=== PATIENT | female | born 1975 | race Caucasian/White ===

== ENCOUNTER 2017-01-18 | Day surgery (SDC) | payer OTHER ==
[~2017-01-18] VITALS: Ht 172.7 cm; Wt 84.8 kg
[2017-01-18] MEDS ORDERED: ALEV220C2 PO (00:14)
[2017-01-18] MEDS ORDERED: NS 1,000 ML IV ONE (01:45)
[2017-01-18] MEDS ORDERED: ONDANSETRON 4MG/2ML VIAL (J2405) IV ONE ×2 (01:45→03:15)
[2017-01-18 02:12] LABS: BASO % 0.2 % (0.0-1.0); EOS % 0.1 % (0.0-3.0); IMMATURE GRANULOCYTE % 0.5 % (0-0); LYMPH # 0.8 10^3/uL (1.5-4.5); LYMPH % 4.6 % (24.0-44.0); MEAN CORPUSCULAR HEMOGLOBIN 30.5 pg (27.0-33.0); MEAN CORPUSCULAR HGB CONC 33.7 g/dl (32.0-36.5); MEAN CORPUSCULAR VOLUME 90.4 fl (80.0-96.0); MONO % 5.9 % (0.0-5.0); NEUTROPHILS # 15.1 10^3/uL (1.8-7.7); NEUTROPHILS % 88.7 % (36.0-66.0); PLATELET COUNT, AUTOMATED 355 10^3/uL (150-450); RED CELL DISTRIBUTION WIDTH 13.2 % (11.5-14.5); WHITE BLOOD COUNT 17.1 10^3/uL (4.0-10.0)
[2017-01-18 02:42] LABS: BLOOD UREA NITROGEN 6 MG/DL (7-18); CREATININE FOR GFR 0.57 MG/DL (0.55-1.02); GLUCOSE, FASTING 111 MG/DL (70-105)
[2017-01-18 02:43] LABS: ALBUMIN 3.4 GM/DL (3.2-5.2); ALKALINE PHOSPHATASE 156 U/L (45-117); ALT/SGPT 57 U/L (12-78); ANION GAP 9 MEQ/L (8-16); AST/SGOT 49 U/L (15-37); BILIRUBIN,TOTAL 1.2 MG/DL (0.2-1.0); CALCIUM LEVEL 8.9 MG/DL (8.5-10.1); CARBON DIOXIDE LEVEL 29 MEQ/L (21-32); CHLORIDE LEVEL 102 MEQ/L (98-107); GLOMERULAR FILTRATION RATE > 60.0 (>58); POTASSIUM SERUM 3.4 MEQ/L (3.5-5.1); SODIUM LEVEL 140 MEQ/L (136-145); TOTAL PROTEIN 6.8 GM/DL (6.4-8.2)
[2017-01-18] MEDS ORDERED: MORPHINE 4 MG/ML 1ML SYRINGE IV PRN ×2 (03:15→19:15)
[2017-01-18] MEDS ORDERED: GASTROGRAFIN SOLUTION 30ML (Q9963) PO ONE ×2 (03:25→03:55)
--- NOTE | 2017-01-18 04:00 | REPUSA ---
CLINICAL HISTORY: Pelvic pain. Ovarian mass. TECHNIQUE: Realtime sonographic images were obtained in multiple projections via TV approach. COMMENTS: The uterus measures 9.4x5.4x5.9 cm. Endometrium is normal in thickness measuring 13.6 mm. Complex solid mass of the right ovary/right adnexa measuring 10.6x7.2x9.8 cm. Number item vein flow. Left ovary is enlarged measuring 8.8x3.9x7.5 cm with a complex cyst measuring 4.2 cm. Normal left ova davis flow. Unremarkable bladder. IMPRESSION: 10.6 cm large solid mass of the right adnexa. This may represent pedunculated subserosal uterine fibr oid versus right ovarian complex solid mass. Left ovarian complex cyst. Thank you for your kind referral of this patient.
[2017-01-18] MEDS ORDERED: ISOVUE-370 76% 100ML VIAL (Q9967) As Ordered ONE (04:10)
[2017-01-18] MEDS ORDERED: METAL LOCK LOOP XX ONE ×2 (05:55→09:09)
--- NOTE | 2017-01-18 06:30 | REPUSA ---
CLINICAL HISTORY: Abdominal pain. TECHNIQUE: Multiple axial, sagittal and coronal CT images were obtained through the abdomen and pelvi s after administration of oral and intravenous contrast material. COMMENTS: 10.2 x7.8 cm heterogeneously enhancing solid mass of the right adnexa. Multiple left ovarian cysts with the largest measuring 3.1 cm. Right hydrosalpinx. Left hydrosalpinx. Fluid-filled colon. The liver is of uniform attenuation without mass or defect. There is no intra or extrahepatic biliary ductal dilatation. The spleen is normal. The gallbladder is within normal limits. The pancreas is of normal contour and attenuation characteristics. There is no evidence of adrenal mass. Both kidneys demonstrate prompt and equal nephrograms. The kidneys are normal in size, shape and conf iguration. There is no evidence of renal or ureteral mass. No renal or ureteral calculi are identifie d. There is no hydroureter or hydronephrosis. No evidence for appendicitis. There is no bowel wall thickening. No evidence for small or large adelaida l obstruction. There is no evidence of intrinsic or extrinsic bladder mass. Images of the lung bases show no evidence of pleural or parenchymal mass. There are no pleural effusi ons. The bony structures are free of lytic or blastic lesions. Multilevel degenerative changes are seen in volving the thoracolumbar spine. Scattered calcifications are seen involving the aorta and major bran ches compatible with atherosclerosis. IMPRESSION: Right adnexal solid enhancing mass, probably pedunculated subserosal fibroid. Right hydrosalpinx. Left hydrosalpinx. Multiple left ovarian cysts. Findings can be better/further evaluated by means of MRI with gadolinium if clinically warranted. Fluid-filled colon. Probably mild ileus. Thank you for your kind referral of this patient.
[2017-01-18] MEDS ORDERED: MORPHINE 4 MG/ML 1ML SYRINGE IV ONE (07:45)
[2017-01-18 08:18] LABS: BASO % 0.2 % (0.0-1.0); EOS % 0.1 % (0.0-3.0); IMMATURE GRANULOCYTE % 0.5 % (0-0); LYMPH # 1.5 10^3/uL (1.5-4.5); LYMPH % 7.9 % (24.0-44.0); MEAN CORPUSCULAR HEMOGLOBIN 30.9 pg (27.0-33.0); MEAN CORPUSCULAR HGB CONC 33.9 g/dl (32.0-36.5); MEAN CORPUSCULAR VOLUME 91.3 fl (80.0-96.0); MONO # 1.2 10^3/uL (0.0-0.8); MONO % 6.5 % (0.0-5.0); NEUTROPHILS % 84.8 % (36.0-66.0); PLATELET COUNT, AUTOMATED 355 10^3/uL (150-450); RED CELL DISTRIBUTION WIDTH 13.2 % (11.5-14.5); WHITE BLOOD COUNT 18.9 10^3/uL (4.0-10.0)
[2017-01-18] MEDS ORDERED: EXCETAB80 PO (09:17)
--- NOTE | 2017-01-18 10:04 | CR.PDOC ---
[facility] Consultation Consultation DATE OF CONSULTATION: Jan 18, 2017 at 00:00 REFERRING PROVIDER: Dr. Briggs ATTENDING PHYSICIAN: Dr. Vazquez REASON FOR CONSULTATION/CHIEF COMPLAINT: Abdominal pain HISTORY OF PRESENT ILLNESS: Patient presents to the emergency room because of abdominal pain that started on Sunday. She admits the pain has been worsening since Sunday. The pain is throughout her general abdomen, however it is worse in her lower abdomen. The pain was 9 out of 10 on presentation, the pain is exacerbated by movement. Patient admits to fever yesterday, however she did not measure her temperature she simply took aspirin for the fever. She admits to decreased appetite, stated that she has only been able to tolerate a few crackers since the pain began. She admits to being constipated, her last bowel movement was yesterday and he was a few pellets. There was no pain with defecation, and defecation did not improve her pain. CT of the abdomen revealed right adnexal solid enhancing mass, probably pedunculated serosal fibroid. Along with a right hydrosalpinx and left hydrosalpinx and also multiple left ovarian cysts. Surgery was consulted for the possibility of an acute abdomen after peritoneal signs were noted on physical exam. Patient denies any chills, hematuria, difficulty straining, melena, bright red blood per stool. ALLERGIES: Please see below. HOME MEDICATIONS: Please see below. PAST MEDICAL HISTORY: 1. None PAST SURGICAL HISTORY: 1. Left knee surgery FAMILY HISTORY: SOCIAL HISTORY: Lives with the and son. Smokes .5 pack a day. And drinks 2-3 times a week about 3-4 beers a sitting. Denies drugs REVIEW OF SYSTEMS: CONSTITUTIONAL: Admits to fever. CARDIOVASCULAR: Denies any chest pain, palpitations, rapid heart rate. RESPIRATORY: Admits that taking full deep breath causes her abdominal pain. GENITOURINARY: No issues to report. MUSCULOSKELETAL: Denies muscles, joint, skeletal muscle pain GASTROINTESTINAL: Admits to constipation, denies blood in stool. HEMATOLOGIC/LYMPHATIC: Admits to periods that requires both pads and tampons PHYSICAL EXAMINATION: VITAL SIGNS: Please see below. GENERAL APPEARANCE: Well mannered, well-developed adult female, knees bent over RESPIRATORY: Lungs are clear to auscultate, bilateral anterior and posterior CARDIOVASCULAR: S1 and S2 present, no rubs, no murmurs, no gallops. ABDOMEN: To palpate in all 4 quadrants, pain is worse in the lower abdomen. EXTREMITIES: Then, no deformities noted. LABORATORY DATA: Please see below. ASSESSMENT/PLAN: 1. Abdominal pain: Etiology unsure,most likely caused the right adnexal solid enhancing mass, identified as probably pedunculated subserosal fibroid. The pain could also be related to her right hydrosalpinx all left hydrosalpinx. Also perhaps abdominal pain could be stemming from her multiple left ovarian cysts..EGG FACTORY WORKER has been consulted. I recommend following the guidelines and management recommended by EGG FACTORY WORKER. Patient is not exhibiting any physical signs of an acute abdomen, does not require surgical intervention at this point. 2. Local ileus in pelvis: Ileus adjacent to EGG FACTORY WORKER pathology. Ileus is most likely caused by pelvic inflammation caused by EGG FACTORY WORKER issues. I believe that once EGG FACTORY WORKER issue has been resolved, local ileus will resolve as well. Vital Signs/I&O Vital Signs Date Time Temp Pulse Resp B/P (MAP) Pulse Ox O2 Delivery O2 Flow Rate FiO2 01/18/17 08:14 98.7 103 18 129/81 99 Room Air Laboratory Data Labs 24H Laboratory Tests 2 01/18/17 01:43: Immature Granulocyte % (Auto) 0.5H, White Blood Count 17.1H, Red Blood Count 4.17, Hemoglobin 12.7, Hematocrit 37.7, Mean Corpuscular Volume 90.4, Mean Corpuscular Hemoglobin 30.5, Mean Corpuscular Hemoglobin Concent 33.7, Red Cell Distribution Width 13.2, Platelet Count 355, Neutrophils (%) (Auto) 88.7H, Lymphocytes (%) (Auto) 4.6L, Monocytes (%) (Auto) 5.9H, Eosinophils (%) (Auto) 0.1, Basophils (%) (Auto) 0.2, Neutrophils # (Auto) 15.1H, Lymphocytes # (Auto) 0.8L, Monocytes # (Auto) 1.0H, Eosinophils # (Auto) 0.0, Basophils # (Auto) 0.0 , Immature Granulocyte # (Auto) 0.1H, Nucleated Red Blood Cells % (auto) 0.0, Anion Gap 9, Glomerular Filtration Rate > 60.0, Blood Urea Nitrogen 6L, Creatinine 0.57, Sodium Level 140, Potassium Level 3.4L, Chloride Level 102, Carbon Dioxide Level 29, Calcium Level 8.9, Aspartate Amino Transf (AST/SGOT) 49H, Alanine Aminotransferase (ALT/SGPT) 57, Alkaline Phosphatase 156H, Total Bilirubin 1.2H, Total Protein 6.8, Albumin 3.4, Albumin/Globulin Ratio 1.00, Lipase 85 01/18/17 08:02: Immature Granulocyte % (Auto) 0.5H, White Blood Count 18.9H, Red Blood Count 4.04, Hemoglobin 12.5, Hematocrit 36.9, Mean Corpuscular Volume 91.3, Mean Corpuscular Hemoglobin 30.9, Mean Corpuscular Hemoglobin Concent 33.9, Red Cell Distribution Width 13.2, Platelet Count 355, Neutrophils (%) (Auto) 84.8H, Lymphocytes (%) (Auto) 7.9L, Monocytes (%) (Auto) 6.5H, Eosinophils (%) (Auto) 0.1, Basophils (%) (Auto) 0.2, Neutrophils # (Auto) 16.0H, Lymphocytes # (Auto) 1.5, Monocytes # (Auto) 1.2H, Eosinophils # (Auto) 0.0, Basophils # (Auto) 0.0, Immature Granulocyte # (Auto) 0.1H, Nucleated Red Blood Cells % (auto) 0.0 CBC/BMP Laboratory Tests 01/18/17 01:43 Red Blood Count 4.17, Mean Corpuscular Volume 90.4, Mean Corpuscular Hemoglobin 30.5, Mean Corpuscular Hemoglobin Concent 33.7, Red Cell Distribution Width 13.2 , Neutrophils (%) (Auto) 88.7 H, Lymphocytes (%) (Auto) 4.6 L, Monocytes (%) ( Auto) 5.9 H, Eosinophils (%) (Auto) 0.1, Basophils (%) (Auto) 0.2, Neutrophils # (Auto) 15.1 H, Lymphocytes # (Auto) 0.8 L, Monocytes # (Auto) 1.0 H, Eosinophils # (Auto) 0.0, Basophils # (Auto) 0.0, Calcium Level 8.9, Aspartate Amino Transf (AST/SGOT) 49 H, Alanine Aminotransferase (ALT/SGPT) 57, Alkaline Phosphatase 156 H, Total Bilirubin 1.2 H, Total Protein 6.8, Albumin 3.4 01/18/17 08:02 Red Blood Count 4.04, Mean Corpuscular Volume 91.3, Mean Corpuscular Hemoglobin 30.9, Mean Corpuscular Hemoglobin Concent 33.9, Red Cell Distribution Width 13.2 , Neutrophils (%) (Auto) 84.8 H, Lymphocytes (%) (Auto) 7.9 L, Monocytes (%) ( Auto) 6.5 H, Eosinophils (%) (Auto) 0.1, Basophils (%) (Auto) 0.2, Neutrophils # (Auto) 16.0 H, Lymphocytes # (Auto) 1.5, Monocytes # (Auto) 1.2 H, Eosinophils # (Auto) 0.0, Basophils # (Auto) 0.0 Allergies Coded Allergies: No Known Allergies (Unverified , 01/18/17) Home Medications Scheduled PRN (Aleve) 220 Mg Cap, 2 TAB PO once PRN for PAIN, (Reported) Acetaminophen/Aspirin/Caffein (Excedrin Migraine 250-250-65 mg) 1 Tab Tab, 1 TAB PO for MIGRAINE, (Reported) GME ATTESTATION GME ATTESTATION My preceptor for this patient encounter was physically present in the building during the encounter and was fully available. As needed, all aspects of the patient interview, examination, medical decision making process, and medical care plan development were reviewed and approved by the preceptor. Preceptor is aware and concurs with the plan as stated in the body of this note and will attest to such by his/her cosignature. ZANA REAL DO Jan 18, 2017 09:48
[2017-01-18 14:02] LABS: CONTROL LINE HCG INT CTR LINE PRESENT
--- NOTE | 2017-01-18 14:48 | REP ---
Clinical: Epigastric and abdominal pain. Technique: Upright view of the chest with supine and upright views of the abdomen and pelvis. Findings: Frontal upright view of the chest demonstrates no acute cardiopulmonary process or free air below the diaphragm to suspect pneumoperitoneum. Supine and upright views of the abdomen and pelvis demonstrate nonspecific bowel gas pattern without obstruction or perforation. No organomegaly. No abnormal calcifications. Skeletal structures normal for age. Impression: Nonspecific bowel gas pattern. Signed by Kiel Mcmanus MD 01/18/2017 02:40 P
[2017-01-18] MEDS ORDERED: ceFAZolin 2 GM/D5W 50 ML IV BAG (J0690) As Ordered ONE (15:00)
[2017-01-18] MEDS ORDERED: fentaNYL 250 MCG/5 ML INJECTION (J3010) As Ordered ONE (16:20)
[2017-01-18] MEDS ORDERED: ONDANSETRON 4MG/2ML VIAL (J2405) As Ordered ONE (16:20)
[2017-01-18] MEDS ORDERED: KETOROLAC 60 MG/2 ML VIAL (J1885) As Ordered ONE (16:20)
[2017-01-18] MEDS ORDERED: PHENYLephrine HCL 500 MCG/5 ML (100MCG/ML) SYRINGE (J2370) As Ordered ONE (16:20)
[2017-01-18] MEDS ORDERED: PROPOFOL 200 MG/20 ML VIAL As Ordered ONE (16:20)
[2017-01-18] MEDS ORDERED: HYDROmorphone HCL 2 MG/ML 1ML VIAL (J1170) As Ordered ONE (16:20)
[2017-01-18] MEDS ORDERED: ROCURONIUM BROMIDE 50 MG/5 ML VIAL/SYRINGE As Ordered ONE (16:20)
[2017-01-18] MEDS ORDERED: LIDOCAINE 2% INJ 100 MG/5 ML SDV (FOR ANES.) As Ordered ONE (16:20)
[2017-01-18] MEDS ORDERED: SUCCINYLCHOLINE 100 MG/5 ML SYRINGE (J0330) As Ordered ONE (16:20)
[2017-01-18] MEDS ORDERED: MIDAZOLAM INJ 2 MG/2 ML VIAL (J2250) As Ordered ONE (16:20)
[2017-01-18] MEDS ORDERED: dexameTHASONE 4 MG/ML 1ML VIAL (J1100) As Ordered ONE (16:20)
[2017-01-18] MEDS ORDERED: NEOSTIGMINE 10 MG/10 ML VIAL (J2710) As Ordered ONE (16:22)
[2017-01-18] MEDS ORDERED: GLYCOPYRROLATE INJ 0.2 MG/ML 2 ML VIAL As Ordered ONE (16:22)
[2017-01-18] MEDS ORDERED: ONDANSETRON 4MG/2ML VIAL (J2405) IV PRN (18:30)
[2017-01-18] MEDS ORDERED: fentaNYL 100 MCG/2 ML INJECTION (J3010) IV PRN (18:30)
[2017-01-18] MEDS ORDERED: LR 1,000 ML IV SCH (18:30)
[2017-01-18] MEDS ORDERED: MORPHINE 2 MG/ML 1ML SYRINGE IV PRN (18:30)
[2017-01-18] MEDS ORDERED: PROMETHAZINE INJ 25 MG/ML VIAL (J2550) IV PRN (19:15)
[2017-01-18 20:51] VITALS: BP 134/73
[2017-01-18 21:30] VITALS: BP 109/59
[2017-01-18] MEDS: LR 1,000 ML IV SCH (21:32)
[2017-01-18] MEDS: PIPERACILLIN/TAZOBACTAM SOD 3.375 GM in D5W 50 ML IV SCH (21:32)
[2017-01-18] MEDS: KETOROLAC 30 MG/ML VIAL (J1885) IV SCH (21:47)
[2017-01-18 22:30] VITALS: BP 99/57
[2017-01-18 23:59] VITALS: BP 105/51
[2017-01-19] MEDS: PIPERACILLIN/TAZOBACTAM SOD 3.375 GM in D5W 50 ML IV SCH ×5 (02:26→20:18)
[2017-01-19 04:00] VITALS: BP 108/59
[2017-01-19] MEDS: LR 1,000 ML IV SCH (05:03)
[2017-01-19] MEDS: KETOROLAC 30 MG/ML VIAL (J1885) IV SCH ×4 (05:04→22:00)
--- NOTE | 2017-01-19 05:30 | HPE ---
DATE OF ADMISSION: 01/18/2017 REASON FOR ADMISSION: Pelvic mass. HISTORY OF PRESENT ILLNESS: Ms. Estrada is a 41-year-old 1, para 1, who presented to the emergency department with complains of abdominopelvic pain and constipation. She reports that her pain started on Sunday and has progressively worsened the night of presentation. She reports two days of constipation. She has had a bowel movement yesterday, small amounts. She denied any fever, chills, vaginal bleeding or dysuria. PAST MEDICAL HISTORY: None. PAST SURGICAL HISTORY: She has had left knee surgery. MEDICATIONS: None. ALLERGIES: She has no known drug allergies. SOCIAL HISTORY: She reports a half pack a day of smoking. PHYSICAL EXAMINATION: VITAL SIGNS: Stable. She is afebrile. GENERAL APPEARANCE: Is well appearing. No acute distress. LUNGS: Clear to auscultation bilaterally. CARDIOVASCULAR: Heart regular rate and rhythm. ABDOMEN: Appears distended, diffuse tenderness throughout. LABORATORY DATA: She has a white count of 18.9. Her hemoglobin is 12.5, hematocrit 36.9. Platelet count are 355. IMAGING: She had a pelvic ultrasound demonstrating a 10.6 cm mass in her right adnexa concerning for pedunculated subserosal uterine fibroid, as well as a complex left ovarian cyst measuring 4.2 cm. Bilateral hydrosalpinx noted. ASSESSMENT: 1. Ms. Estrada is a 41-year-old 1, para 1 with worsening acute abdominal pain described as 01/16. 2. Pelvic mass concerning for possible degenerative fibroid versus ovarian tumor , possible fibroma. Also in differential tubo-ovarian abscess considering leukocytosis of 18,000. PLAN: I have discussed these findings with the couple. I discussed surgical management with exploratory laparotomy, likely myomectomy, possible salpingo-oophorectomy. She is also being consented for all indicated procedures. CORIN
[2017-01-19 06:03] LABS: MEAN CORPUSCULAR HEMOGLOBIN 31.2 pg (27.0-33.0); MEAN CORPUSCULAR HGB CONC 33.8 g/dl (32.0-36.5); MEAN CORPUSCULAR VOLUME 92.4 fl (80.0-96.0); RED CELL DISTRIBUTION WIDTH 13.2 % (11.5-14.5)
[2017-01-19 06:12] LABS: ANION GAP 9 MEQ/L (8-16); BLOOD UREA NITROGEN 9 MG/DL (7-18); CALCIUM LEVEL 8.2 MG/DL (8.5-10.1); CARBON DIOXIDE LEVEL 27 MEQ/L (21-32); CHLORIDE LEVEL 102 MEQ/L (98-107); GLOMERULAR FILTRATION RATE > 60.0 (>58); GLUCOSE, FASTING 120 MG/DL (70-105); POTASSIUM SERUM 3.8 MEQ/L (3.5-5.1); SODIUM LEVEL 138 MEQ/L (136-145)
[2017-01-19 08:00] VITALS: BP 115/57
[2017-01-19] MEDS ORDERED: PERCOCET PO (08:41)
[2017-01-19] MEDS ORDERED: IBUP1TAB7 PO (08:43)
[2017-01-19] MEDS ORDERED: DOCUSATE SODIUM 100 MG CAP PO PRN (08:45)
[2017-01-19] MEDS ORDERED: MOM 30ML SUSPENSION UDC PO PRN (08:45)
[2017-01-19 12:00] VITALS: BP 116/64
[2017-01-19] MEDS: PERCOCET 5MG/325MG TAB PO PRN ×2 (12:01→23:29)
--- NOTE | 2017-01-19 13:25 | RO ---
DATE OF PROCEDURE: 01/18/2017 PREPROCEDURE DIAGNOSES: Pelvis mass. POSTPROCEDURE DIAGNOSES: 1. Bilateral tubo-ovarian abscesses. 2. Pedunculated fibroid. PROCEDURE: 1. Exploratory laparotomy. 2. Abdominal myomectomy. 3. Bilateral salpingectomy. 4. Left oophorectomy. SURGEON: Judith Gonzalez MD MATERIAL ENGINEER: Rigoberto Gutierrez MD ANESTHESIA: General endotracheal anesthesia. ESTIMATED BLOOD LOSS: 500 mL. INTRAVENOUS FLUIDS: 2700 mL of lactated ringer solution. URINE OUTPUT: 60 mL. PREOPERATIVE ANTIBIOTICS: 2 grams of Ancef. SPECIMENS: Bilateral fallopian tubes, right ovary and fibroid. OPERATIVE FINDINGS: Upon entry into the patient's abdomen, there was a moderate amount of pus that was appreciated. Large hydrosalpinx of the right fallopian tube, left tubo-ovarian abscess involving the tube as well as the patient's left ovary. Inflammatory peritoneum. Findings consistent with ruptured bilateral tubo-ovarian abscesses. There was also a 10 cm pedunculated fundal fibroid. DESCRIPTION OF OPERATION: After informed consent was obtained and written content was reviewed, the patient was taken to the operating room where general endotracheal anesthesia was obtained. She was then left in supine position where a Barrientos catheter was placed and set to gravity. She was then prepped and draped in a normal sterile fashion. A time out in the operating room was then performed identifying the patient, the procedure to be performed, as well as drug allergies. A Pfannenstiel skin incision was then made and carried down to align with the fascia. The fascia was scored and this incision was extended bilaterally. The fascia was then dissected off the underlying rectus muscles, both superiorly and inferiorly. The rectus muscles were then in the midline. The peritoneum was then identified and was tented and excised. Upon entry at the peritoneum, there was a copious amount of pus which was irrigated. The pelvis was then explored revealing large bilateral inflammatory masses, consistent with tubo-ovarian abscesses. There was also a large 10 cm fibroid which was appreciated. The uterus along with the adnexa was then brought to the level of the incision. The right adnexa was bluntly dissected off the pelvis side wall. We were then able to identify the right ovary from the abscess which was dissected off and was able to dissect the fallopian tube and transect the mesosalpinx with good hemostasis noted. The left tubo-ovarian abscess was then dissected off the pelvic side wall. The uterine ovarian ligament was doubly clamped and ligated and this area was suture ligated , good hemostasis noted. The abscess was further dissected off. The infundibulopelvic ligament was then identified, it was doubly clamped and transected. It was than suture ligated with good hemostasis noted. Both specimens were removed and taken to pathology for further evaluation. A myomectomy was then performed. The pedunculated fibroid was transected. This area of the uterus was then closed in two layers using #0 Vicryl in a running locking fashion and there were several [id number] stitches placed for hemostasis. There was additional [id number] stitches placed in the posterior aspect of the fundus for hemostasis. The abdomen was then irrigated and suctioned. Surgical sites were inspected and noted to be hemostatic. Sylvie was then applied over the surgical field. The uterus was then returned into the patient's abdomen. The anterior peritoneum was then reapproximated using #3-0 Vicryl. The fascia was then closed with #0 PDS in a running nonlocking fashion. Several stitches were placed and reapproximated in the subcutaneous tissue. Several subdermal stitches were placed in the skin with #3-0 Vicryl. The skin was then closed with #4-0 Monocryl in a subcuticular fashion. The incision was then cleaned and dry. Mastisol was applied above and below the incision. Steri-Strips were applied over the incision and then incision was then dressed. The patient was then awakened from general anesthesia and taken to recovery in stable condition. CORIN
[2017-01-19 16:00] VITALS: BP 114/53
[2017-01-19 19:42] VITALS: BP 121/57
[2017-01-19 23:26] VITALS: BP 115/59
[2017-01-20] MEDS: PIPERACILLIN/TAZOBACTAM SOD 3.375 GM in D5W 50 ML IV SCH ×2 (01:36→07:41)
[2017-01-20] MEDS: KETOROLAC 30 MG/ML VIAL (J1885) IV SCH ×2 (04:00→10:00)
[2017-01-20 04:54] VITALS: BP 104/58
[2017-01-20 05:10] LABS: MEAN CORPUSCULAR HEMOGLOBIN 30.5 pg (27.0-33.0); MEAN CORPUSCULAR HGB CONC 33.2 g/dl (32.0-36.5); MEAN CORPUSCULAR VOLUME 91.8 fl (80.0-96.0); RED CELL DISTRIBUTION WIDTH 13.2 % (11.5-14.5)
[2017-01-20] MEDS: PERCOCET 5MG/325MG TAB PO PRN ×2 (07:39→12:12)
[2017-01-20 08:00] VITALS: BP 128/62
[2017-01-20] MEDS ORDERED: COLA100C5 PO (11:21)
[2017-01-20] MEDS ORDERED: MILKSUS PO (11:21)
[2017-01-20 12:00] VITALS: BP 122/75
== END 2017-01-20 12:19 | disposition home or self-care (01) ==
LOC: M ED → M SDC 11:02 → M MS5PR 13:35 → M PCU 18:55 → M SDC 01-20 12:19
PROVIDERS: ATTEND Obstetrics & Gynecology
DX: N70.93 Salpingitis and oophoritis, unspecified (principal); D25.9 Leiomyoma of uterus, unspecified; R01.1 Cardiac murmur, unspecified; Z72.0 Tobacco use
CPT/HCPCS: 36415; 58140; 58720; 74022; 74177; 76830; 76856; 80048; 80053; 83690; 84703; 85025; 85027; 86304; 86850; 86900; 86901; 87070; 87075; 87077; 87184; 88302; 88305; 93041; 93976; 94760; 96374; 96375; 96376; 99284; J0330; J0690; J1100; J1170; J1885; J2250; J2370; J2405; J2543; J2710; J3010; Q9963; Q9967

== ENCOUNTER → 2017-01-23 | Outpatient (CLI) | payer OTHER ==
[~2017-01-23] MED LIST: ALEV220C2 PO; COLA100C5 PO; EXCETAB80 PO; IBUP1TAB7 PO; MILKSUS PO; PERCOCET PO
[2017-01-23 15:51] LABS: MEAN CORPUSCULAR HEMOGLOBIN 30.6 pg (27.0-33.0); MEAN CORPUSCULAR HGB CONC 33.5 g/dl (32.0-36.5); MEAN CORPUSCULAR VOLUME 91.3 fl (80.0-96.0); RED CELL DISTRIBUTION WIDTH 13.7 % (11.5-14.5); WHITE BLOOD COUNT 15.3 10^3/uL (4.0-10.0)
== END ==
LOC: M SMT 13:18
PROVIDERS: ATTEND Obstetrics & Gynecology
DX: Z48.816 Encounter for surgical aftercare following surgery on the genitourinary system (principal)

== ENCOUNTER → 2017-02-20 | Outpatient (CLI) | payer OTHER ==
[2017-02-20 19:01] LABS: MEAN CORPUSCULAR HEMOGLOBIN 30.5 pg (27.0-33.0); MEAN CORPUSCULAR HGB CONC 33.2 g/dl (32.0-36.5); MEAN CORPUSCULAR VOLUME 91.8 fl (80.0-96.0); PLATELET COUNT, AUTOMATED 339 10^3/uL (150-450); RED CELL DISTRIBUTION WIDTH 14.2 % (11.5-14.5); WHITE BLOOD COUNT 8.6 10^3/uL (4.0-10.0)
== END ==
LOC: M SMT 14:12
PROVIDERS: ATTEND Obstetrics & Gynecology
DX: Z48.816 Encounter for surgical aftercare following surgery on the genitourinary system (principal)

== ENCOUNTER → 2017-06-04 | Outpatient (REF) | payer OTHER | LOC: M LAB REF 09:04 | DX: Z12.4 Encounter for screening for malignant neoplasm of cervix (principal) ==

== ENCOUNTER → 2017-06-15 | Outpatient (CLI) | payer OTHER | LOC: M RAD 07:43 | DX: Z12.31 Encounter for screening mammogram for malignant neoplasm of breast (principal); Z48.816 Encounter for surgical aftercare following surgery on the genitourinary system ==

== ENCOUNTER 2017-09-12 12:14 | Day surgery (SDC) | payer OTHER ==
[~2017-09-12 12:14] MED LIST changes: -ALEV220C2 PO; -COLA100C5 PO; -EXCETAB80 PO; +GLYCOPYRROLATE INJ 0.2 MG/ML 2 ML VIAL As Ordered; +HYDROmorphone HCL 2 MG/ML 1ML VIAL (J1170) As Ordered; -IBUP1TAB7 PO; +KETOROLAC 60 MG/2 ML VIAL (J1885) As Ordered; +LIDOCAINE 2% INJ 100 MG/5 ML SDV (FOR ANES.) As Ordered; +MIDAZOLAM INJ 2 MG/2 ML VIAL (J2250) As Ordered; -MILKSUS PO; +NEOSTIGMINE 10 MG/10 ML VIAL (J2710) As Ordered; +ONDANSETRON 4MG/2ML VIAL (J2405) As Ordered; -PERCOCET PO; +PROPOFOL 200 MG/20 ML VIAL As Ordered; +ROCURONIUM BROMIDE 50 MG/5 ML VIAL As Ordered; +dexameTHASONE 4 MG/ML 1ML VIAL (J1100) As Ordered; +fentaNYL 100 MCG/2 ML INJECTION (J3010) As Ordered
[2017-09-12 12:43] LABS: HEMATOCRIT 42.2 % (36.0-47.0); HEMOGLOBIN 13.9 g/dl (12.0-15.5); MEAN CORPUSCULAR HEMOGLOBIN 29.4 pg (27.0-33.0); MEAN CORPUSCULAR HGB CONC 32.9 g/dl (32.0-36.5); MEAN CORPUSCULAR VOLUME 89.2 fl (80.0-96.0); PLATELET COUNT, AUTOMATED 327 10^3/uL (150-450); RED BLOOD COUNT 4.73 10^6/uL (4.00-5.40); RED CELL DISTRIBUTION WIDTH 15.2 % (11.5-14.5)
[2017-09-12] MEDS: LR 1,000 ML IV ×3 (13:00→17:35)
[2017-09-12] MEDS: BUPIVACAINE HCL 0.25% 30 ML VIAL As Ordered (13:41)
[2017-09-12] MEDS: METHYLENE BLUE 0.5% (5MG/ML) 10 ML AMP (PROVAYBLUE)(Q9968 PER 1MG) As Ordered (15:49)
[2017-09-12] MEDS ORDERED: PERCOCET 5MG/325MG TAB As Ordered (16:44)
[2017-09-12] MEDS ORDERED: LR 1,000 ML IV (16:45)
[2017-09-12] MEDS ORDERED: ONDANSETRON 4MG/2ML VIAL (J2405) IV (16:45)
[2017-09-12] MEDS ORDERED: HYDROMORPHONE HCL 0.5 MG/ 0.5 ML SYRINGE (J1170 PER 1) IV (16:45)
[2017-09-12] MEDS: PERCOCET 5MG/325MG TAB PO (16:45)
[2017-09-12] MEDS ORDERED: fentaNYL 100 MCG/2 ML INJECTION (J3010) IV (16:45)
[2017-09-12] MEDS ORDERED: PROMETHAZINE INJ 25 MG/ML VIAL (J2550) IV (17:00)
[2017-09-12] MEDS ORDERED: MORPHINE 4 MG/ML 1ML VIAL/SYRINGE (J2270) IV (17:00)
[2017-09-12] MEDS ORDERED: PERCOCET 5MG/325MG TAB PO ×2 (17:00)
[2017-09-12] MEDS ORDERED: zolPIDEM TARTRATE 5 MG TAB PO (17:00)
== END 2017-09-12 20:35 | disposition home or self-care (01) ==
LOC: M SDC 12:14 → M PED 14:35 → M SDC 20:35
DX: N93.9 Abnormal uterine and vaginal bleeding, unspecified (principal); N81.9 Female genital prolapse, unspecified; G43.909 Migraine, unspecified, not intractable, without status migrainosus; Z98.51 Tubal ligation status; Z72.0 Tobacco use
CPT/HCPCS: 58571

== ENCOUNTER 2023-09-20 15:46 | Emergency (ER) | payer BC, OTHER ==
[~2023-09-20] VITALS: Ht 172.7 cm; Wt 100.5 kg
[~2023-09-20 15:46] MED LIST changes: +ALEV220C2 PO; +COLA100C5 PO; +EXCETAB80 PO; -GLYCOPYRROLATE INJ 0.2 MG/ML 2 ML VIAL As Ordered; -HYDROmorphone HCL 2 MG/ML 1ML VIAL (J1170) As Ordered; +IBUP1TAB7 PO; -KETOROLAC 60 MG/2 ML VIAL (J1885) As Ordered; -LIDOCAINE 2% INJ 100 MG/5 ML SDV (FOR ANES.) As Ordered; -MIDAZOLAM INJ 2 MG/2 ML VIAL (J2250) As Ordered; +MILK120011 PO; -NEOSTIGMINE 10 MG/10 ML VIAL (J2710) As Ordered; -ONDANSETRON 4MG/2ML VIAL (J2405) As Ordered; +PERC5TAB12 PO; +PERCOCET PO; -PROPOFOL 200 MG/20 ML VIAL As Ordered; -ROCURONIUM BROMIDE 50 MG/5 ML VIAL As Ordered; -dexameTHASONE 4 MG/ML 1ML VIAL (J1100) As Ordered; -fentaNYL 100 MCG/2 ML INJECTION (J3010) As Ordered
[2023-09-20 16:48] LABS: BASO # 0.1 10^3/uL (0.0-0.2); BASO % 0.6 % (0.0-1.0); EOS # 0.3 10^3/uL (0.0-0.5); EOS % 1.6 % (0.0-3.0); HEMATOCRIT 42.2 % (36.0-47.0); LYMPH # 3.7 10^3/uL (1.5-5.0); LYMPH % 22.6 % (24.0-44.0); MEAN CORPUSCULAR HEMOGLOBIN 29.9 pg (27.0-33.0); MEAN CORPUSCULAR HGB CONC 33.2 g/dl (32.0-36.5); MONO % 6.1 % (2.0-8.0); NEUTROPHILS # 11.4 10^3/uL (1.5-8.5); NEUTROPHILS % 68.9 % (36.0-66.0); PLATELET COUNT, AUTOMATED 329 10^3/uL (150-450); RED BLOOD COUNT 4.69 10^6/uL (4.00-5.40); WHITE BLOOD COUNT 16.5 10^3/uL (4.0-10.0)
[2023-09-20 16:55] LABS: APPEARANCE, URINE CLEAR (CLEAR); BACTERIA, URINE AUTO NEGATIVE (NEGATIVE); BILIRUBIN, URINE AUTO NEGATIVE (NEGATIVE); BLOOD, URINE BLOOD 1+ (NEGATIVE); COLOR, URINE STRAW (YELLOW); GLUCOSE, URINE (UA) AUTO NEGATIVE (NEGATIVE); KETONE, URINE AUTO NEGATIVE (NEGATIVE); LEUKOCYTE ESTERASE, URINE AUTO NEGATIVE (NEGATIVE); NITRITE, URINE AUTO NEGATIVE (NEGATIVE); PROTEIN, URINE AUTO NEGATIVE (NEGATIVE); RBC, URINE AUTO 1 /HPF (0-3); SPECIFIC GRAVITY URINE AUTO 1.004 (1.002-1.035); SQUAMOUS EPITHELIAL CELL UR AU 0 /HPF (0-6); UROBILINOGEN, URINE AUTO 0.2 mg/dL (0.0-2.0); WBC, URINE AUTO 0 /HPF (0-3)
[2023-09-20 17:12] LABS: ALBUMIN 4.7 G/DL (3.2-5.2); ALKALINE PHOSPHATASE 109 U/L (46-116); ALT/SGPT 23 U/L (7.0-40); AST/SGOT 14 U/L (<34); BILIRUBIN,DIRECT < 0.1 MG/DL (<0.4); BILIRUBIN,TOTAL 0.2 MG/DL (0.3-1.2); BLOOD UREA NITROGEN 12 MG/DL (9-23); CALCIUM LEVEL 10.1 MG/DL (8.5-10.1); CARBON DIOXIDE LEVEL 25 MMOL/L (20-31); CHLORIDE LEVEL 108 MMOL/L (98-107); CREATININE FOR GFR 0.78 MG/DL (0.55-1.30); GLOMERULAR FILTRATION RATE > 60.0 (>58); GLUCOSE, FASTING 84 MG/DL (60-100); POTASSIUM SERUM 4.1 MMOL/L (3.5-5.1); SODIUM LEVEL 142 MMOL/L (136-145); TOTAL PROTEIN 7.5 G/DL (5.7-8.2)
[2023-09-20] MEDS ORDERED: ISOVUE-370 76% 100ML VIAL As Ordered ONE (19:04)
[2023-09-20] MEDS: KETOROLAC 30 MG/ML 1ML VIAL IV ONE (19:41)
[2023-09-20] MEDS: AMPICILLIN SOD/SULBACTAM SOD 3 GM in D5W MINI-BAG PLUS 100 ML IV ONE (19:41)
[2023-09-20] MEDS: dexAMETHasone 20MG/5ML VIAL IV ONE (19:41)
[2023-09-20] MEDS: BENZOCAINE 20% GEL 9GM TUBE (ANBESOL MAX STRENGTH) TOP ONE (21:53)
[2023-09-20] MEDS ORDERED: LISI10TA22 PO (22:11)
[2023-09-20] MEDS ORDERED: AMOX875T2 PO (22:11)
[2023-09-20 22:16] VITALS: BP 154/84
[2023-09-20 22:25] VITALS: BP 154/84; TEMP 97.5; O2SAT 97
== END 2023-09-20 22:24 | disposition home or self-care (01) ==
LOC: M ED 15:46
DX: K04.7 Periapical abscess without sinus (principal); I10 Essential (primary) hypertension; F17.210 Nicotine dependence, cigarettes, uncomplicated; R94.31 Abnormal electrocardiogram [ECG] [EKG]; Z79.2 Long term (current) use of antibiotics; Z79.899 Other long term (current) drug therapy
CPT/HCPCS: 70491; 80053; 81001; 82248; 85025; 93005; 93041; 96374; 99285; J0295; J1100; J1885; Q9967